=== PATIENT | female | born 1950 | race Caucasian/White ===

== ENCOUNTER 2021-03-02 12:12 | Emergency (ER) | payer MEDICARE, SELFPAY ==
[2021-03-02 12:30] VITALS: BP 161/90; PULSE 104; RESP 19; TEMP 37; O2SAT 97; BMI 23.6
--- NOTE | 2021-03-02 13:35 | HMH.EDUTC ---
[facility] [place] Clinical Impression: Bronchitis Sinusitis Qualifiers: Sinusitis location: unspecified location Chronicity: unspecified Qualified Code(s): J32.9 - Chronic sinusitis, unspecified Disposition: Home, Self-Care Condition on Discharge: Good Instructions: Sinusitis, Acute Bronchitis, DI for Sinusitis, DI for Acute Bronchitis Additional Instructions: ? Start antibiotic today. Be sure to complete entire prescription even if feeling better ? Monitor temp. Tylenol every 4 hours as needed and / or ibuprofen every 6 hours as needed ( As long as your primary care physician has told you that it ok to take both. For fever/aches/pains ER if no less than 101 despite Tylenol or Motrin ? Humidifier/vaporizer or hot steamy shower ? Inhaler every 4-6 hours as needed like we discussed. If unsure how to use it, ask pharmacist to demonstrate how. Should help open airways and improve cough, wheezing, and shortness of breath *Promethazine DM cough syrup will cause drowsiness. Use only at night. No driving, operating machinery or caring for small children after taking it *Start steroid today. Helps with inflammation therefore, cough and wheezing. Follow directions on the package. Reviewed side effects. Patient reports taking them before. Follow up IMMEDIATELY for new or worsening of symptoms OR no noticeable improvement over the next 48-72 hours. 911 immediately for any life threatening symptoms such as chest pain or difficulty breathing Prescriptions: Promethazine/Dextromethorphan [Promethazine-Dm Syrup] 2.5 - 5 ml PO Q6H PRN #120 ml PRN Reason: Cough Transmission Status: Received by [facility][id number] Azithromycin [Z-Alen 250mg Tab] 250 mg PO DIRECTED #6 tab Transmission Status: Received by [facility] #[id number] Referrals: Provider,Referral, [Primary Care Provider] - As needed Time of Disposition: 13:42 Medical Decision Making - Melvin Inquiry Pt receiving controlled substance: No Melvin was queried for this patient: No Vital Signs: 03/02/21 12:30 03/02/21 13:50 Temperature 98.6 F 98.6 F Temperature Source Oral Pulse Rate 104 H Pulse Rate [Right Brachial] 104 H Respiratory Rate 19 19 Blood Pressure 161/90 H Blood Pressure [Right Arm] 161/90 H Blood Pressure Mean [Right Arm] 113 Blood Pressure Source [Right Arm] Automatic Cuff Blood Pressure Position [Right Arm] Sitting 02 Sat by Pulse Oximetry 97 Oxygen Delivery Method Room Air Orders (Tests/Meds): ED MEDICATIONS Discontinued Medications Generic Name Dose Route Start Last Admin Trade Name Vick PRN Reason Stop Dose Admin Methylprednisolone Sodium Succinate 125 mg 03/02/21 13:41 03/02/21 13:49 Methylprednisolone Sod Succ 125mg Vial IM 03/02/21 13:42 125 mg ONCE ONE Administration Medical Decision Narrative: Patient state that she has taken azithromycin and solu medrol in the past without complication or reactions Medication discussed with Pharmacy [facility] [place] - General Stated complaint: cough Time Seen by Provider: 03/02/21 13:35 Mode of Arrival: Ambulatory Source of Information: Patient Limitations: No Limitations Description of Symptoms (Recalled from Triage Doc. by RN): PATIENT C/O COUGH AND POSSIBLE BRONCHITIS X 2 DAYS HEENT Symptoms (Recalled from RN notes): No Resp Symptoms (Recalled from RN notes): Yes Skin Symptoms (Recalled from RN notes): No MS Symptoms (Recalled from RN notes): No Functional Status (Recalled from RN notes): WNL - History of Present Illness Provider Complaint: Patient states that she is in visiting from [place] States that sometimes when she comes in she ends up with Bronchitis State that she has been having cough, sinus congestion and drainage in the back of her throat States that she feel like it is moving into her chest worse and the cough has continued to get worse so she came in before it got too bad - Related Data Previous Rx's Medication Instructions Recorde
[2021-03-02 13:50] VITALS: BP 161/90; PULSE 104; RESP 19; TEMP 37; O2SAT 97
== END 2021-03-02 13:57 | disposition home or self-care (01) ==
PROVIDERS: Emergency Provider Nurse Practitioner
DX: J20.9 Acute bronchitis, unspecified (principal); J32.9 Chronic sinusitis, unspecified; E10.9 Type 1 diabetes mellitus without complications
CPT/HCPCS: G0463; 96372; 99202